=== PATIENT | male | born 1990 | race Caucasian/White ===

== ENCOUNTER 2018-02-05 08:19 | Emergency (ER) | payer OTHER ==
[~2018-02-05] VITALS: Ht 177.8 cm; Wt 65.8 kg
[~2018-02-05 08:19] MED LIST: CLONAZEPAM0.5 M2 PO; CYCLOBENZAPRINE10 MG PO; IBUPROFEN600 MG PO; KLONOPIN2 M1 PO; MEDROL DOSEPAK4 MG PO; Motrin,Rufen800 MG PO; NAPROSYN500 MG PO; NKHM; RISPERDAL PO; SUBOXONE 8 MG-1 EACH SL; VISTARIL PO; VISTARIL25 MG PO; XANAX2 M1 PO; ZITHROMAX Z PA250 MG PO; ZOFRAN4 MG PO; ZUBSOLV 5.7-1.1 EACH SL
[2018-02-05] MEDS ORDERED: SUBOXONE 8 MG-1 EACH SL (08:41)
[2018-02-05 08:48] LABS: BASO % 0.3 % (0.0-1.0); HEMATOCRIT 37.4 % (42.0-52.0); HEMOGLOBIN 12.7 g/dl (14.0-18.0); LYMPH # 1.1 10*3/uL (1.3-4.4); LYMPH % 7.1 % (27.0-41.0); MEAN CELL VOLUME 86.8 fl (80.0-94.0); MEAN CORPUSCULAR HGB 29.5 pg (27.0-31.0); MEAN PLATELET VOLUME 9.6 fl (9.6-12.3); MONO # 0.7 10*3/uL (0.1-1.0); MONO % 4.4 % (3.0-9.0); NEUT % 87.8 % (47.0-73.0); PLATELET COUNT AUTOMATED 252 10*3/uL (130-400); RED BLOOD COUNT 4.31 10*6/uL (4.50-5.90); RED CELL DISTRI WIDTH 12.4 % (0-14.5); WHITE BLOOD COUNT 15.9 10*3/uL (4.8-10.8)
[2018-02-05 08:56] LABS: ACT PARTIAL THROMBO TIME 24.5 SECONDS (20.8-31.5)
[2018-02-05 09:06] LABS: ALBUMIN 4.6 gm/dl (3.1-4.5); ALKALINE PHOSPHATASE 78 U/L (45-117); BUN 10 mg/dl (7-24); CHLORIDE 105 mmol/L (98-107); CREATININE 0.84 mg/dL (0.70-1.30); SGOT/AST 11 IU/L (3-35); SGPT/ALT 18 U/L (12-78); SODIUM 140 mmol/L (136-145)
[2018-02-05 09:14] LABS: ETHYL ALCOHOL < 3.0 mg/dl (<3)
[2018-02-05 09:22] LABS: BILIRUBIN NEGATIVE (NEGATIVE); BLOOD NEGATIVE (NEGATIVE); CLARITY SL CLOUDY (CLEAR); COLOR YELLOW (YELLOW); GLUCOSE NEGATIVE (NEGATIVE); KETONE TRACE (NEGATIVE); LEUKO ESTERASE NEGATIVE (NEGATIVE); NITRITE NEGATIVE (NEGATIVE); SPECIFIC GRAVITY 1.015 (1.005-1.030); UROBILINOGEN 0.2 E.U./dl (0.2-1.0)
[2018-02-05 09:30] LABS: BACTERIA 4+; EPITHELIAL CELLS 0-2; WBC 0-2 wbc/hpf (0-5)
[2018-02-05 09:31] LABS: URINE AMPHETAMINES > 1000 (1000ng/ml); URINE BARBITURATES < 200 (200ng/ml); URINE BENZODIAZEPINES < 200 (200ng/ml); URINE CANNABINOIDS (THC) > 50 (50ng/ml); URINE COCAINE > 300 (300ng/ml); URINE METHADONE < 300 (300ng/ml); URINE OPIATES < 300 (300ng/ml)
[2018-02-05 09:33] LABS: URINE PHENCYCLIDINE < 25 (25ng/ml)
== END 2018-02-05 09:43 | disposition short-term general hospital (02) ==
LOC: ED 08:19
PROVIDERS: Emergency Medicine
DX: S06.9X2A Unspecified intracranial injury with loss of consciousness of 31 minutes to 59 minutes, initial encounter (principal); S02.40DA Maxillary fracture, left side, initial encounter for closed fracture; S02.32XA Fracture of orbital floor, left side, initial encounter for closed fracture; S02.40FA Zygomatic fracture, left side, initial encounter for closed fracture; E11.9 Type 2 diabetes mellitus without complications; F17.200 Nicotine dependence, unspecified, uncomplicated; Z79.899 Other long term (current) drug therapy; Y04.0XXA Assault by unarmed brawl or fight, initial encounter; Y93.89 Activity, other specified; Y92.89 Other specified places as the place of occurrence of the external cause; Y99.8 Other external cause status

== ENCOUNTER 2018-02-14 14:42 | Emergency (ER) | payer OTHER ==
[~2018-02-14] VITALS: Ht 175.2 cm; Wt 63.5 kg
== END 2018-02-14 15:08 | disposition home or self-care (01) ==
LOC: ED 14:42
DX: S01.81XD Laceration without foreign body of other part of head, subsequent encounter (principal); F17.200 Nicotine dependence, unspecified, uncomplicated; Z79.899 Other long term (current) drug therapy; Y04.0XXD Assault by unarmed brawl or fight, subsequent encounter

== ENCOUNTER 2018-08-31 10:54 | Inpatient (IN) | payer OTHER ==
[~2018-08-31] VITALS: Ht 175.3 cm; Wt 53.7 kg
--- NOTE | ~2018-08-31 | EKG ---
[place], [place] ELECTROCARDIOGRAM REPORT NAME: LAUREL SHEPHERD UNIT #: [id number] ROOM: 515 DOCTOR: KATIA DRAFT REPORT BIRTHDATE: [birth year] [facility] Test Date: 2018-08-31 Test Time: 11:09:58 Pat Name: LAUREL SHEPHERD Department: Room: [facility] Gender: M Floor Hand: Namrata Ventura : 1990 Requested By: ZACARIAS SAMANIEGO Order Number: [id number] Reading MD: Martina Valencia MD Measurements Intervals [place] Rate: 74 P: 55 HI: 120 QRS: 90 QRSD: 91 T: 14 QT: 397 QTc: 441 Interpretive Statements Sinus arrhythmia Borderline right axis deviation Borderline T wave abnormalities No previous ECG available for comparison Electronically Signed On 08-31-2018 16:07:24 PST by Martina Valencia MD CM:EKGRPT:ELECTROCARDIOGRAM REPORT [id number] ZACARIAS SAMANIEGO EPIPHANY DRAFT REPORT ZACARIAS SAMANIEGO
[2018-08-31 10:54] VITALS: BP 125/85
[2018-08-31 11:17] LABS: BASO % 0.6 % (0.0-1.0); EOS % 0.5 % (1.0-4.0); HEMATOCRIT 39.7 % (42.0-52.0); HEMOGLOBIN 13.4 g/dl (14.0-18.0); LYMPH % 30.6 % (27.0-41.0); MEAN CELL VOLUME 87.4 fl (80.0-94.0); MEAN CORPUSCULAR HGB 29.5 pg (27.0-31.0); MEAN CORPUSCULAR HGB CONC 33.8 g/dl (33.0-37.0); MEAN PLATELET VOLUME 9.4 fl (9.6-12.3); MONO # 0.8 10*3/uL (0.1-1.0); MONO % 12.5 % (3.0-9.0); NEUT # 3.6 10*3/uL (2.3-7.9); NEUT % 55.6 % (47.0-73.0); PLATELET COUNT AUTOMATED 339 10*3/uL (130-400); RED BLOOD COUNT 4.54 10*6/uL (4.50-5.90); RED CELL DISTRI WIDTH 13.2 % (0-14.5); WHITE BLOOD COUNT 6.5 10*3/uL (4.8-10.8)
[2018-08-31 11:35] LABS: ALBUMIN 4.5 gm/dl (3.1-4.5); ALKALINE PHOSPHATASE 78 U/L (45-117); BUN 14 mg/dl (7-24); CHLORIDE 107 mmol/L (98-107); CREATININE 0.96 mg/dL (0.70-1.30); POTASSIUM 3.7 mmol/L (3.5-5.1); SGOT/AST 19 IU/L (3-35); SGPT/ALT 36 U/L (12-78); SODIUM 142 mmol/L (136-145)
[2018-08-31 11:36] LABS: ACETAMINOPHEN (TYLENOL) < 5.0 ug/ml (10-30); ETHYL ALCOHOL < 3.0 mg/dl (<3)
[2018-08-31 12:08] VITALS: BP 132/72
[2018-08-31 12:08] LABS: BILIRUBIN NEGATIVE (NEGATIVE); BLOOD NEGATIVE (NEGATIVE); CLARITY SL CLOUDY (CLEAR); COLOR YELLOW (YELLOW); GLUCOSE NEGATIVE (NEGATIVE); KETONE 1+ (NEGATIVE); LEUKO ESTERASE NEGATIVE (NEGATIVE); NITRITE NEGATIVE (NEGATIVE); PH 6.5 (5.0-9.0); SPECIFIC GRAVITY 1.025 (1.005-1.030)
[2018-08-31 12:20] LABS: BACTERIA 1+; MUCOUS 1+
[2018-08-31 12:21] LABS: URINE AMPHETAMINES > 1000 (1000ng/ml); URINE BARBITURATES < 200 (200ng/ml); URINE BENZODIAZEPINES > 200 (200ng/ml); URINE CANNABINOIDS (THC) < 50 (50ng/ml); URINE COCAINE > 300 (300ng/ml); URINE METHADONE < 300 (300ng/ml); URINE OPIATES < 300 (300ng/ml)
[2018-08-31 12:25] LABS: URINE PHENCYCLIDINE < 25 (25ng/ml)
[2018-08-31] MEDS ORDERED: SUBOXONE 8 MG-1 EACH SL (12:27)
--- NOTE | 2018-08-31 12:42 | NUR ---
28 year old MALE admitted to room # 515 for stabilization. Reports an addiction to [employer]ENZ[employer] last used 48 hours prior to admission. Compliant with admission procedure. Patient ADMITS TO anxiety, PAIN . See assessment forms for additional information about patient status.
[2018-08-31 16:00] VITALS: BP 129/82
[2018-08-31 20:00] VITALS: BP 131/89
[2018-09-01] VITALS: BP 98/62
--- NOTE | 2018-09-01 04:28 | NUR ---
24 HR chart check completed.
[2018-09-01 08:00] VITALS: BP 99/63
--- NOTE | 2018-09-01 10:47 | NUR ---
MEDICATED WITH MOTRIN FOR PT'S COMPLAINTS OF HEADACHE. WILL MONITOR FOR EFFECTIVENESS.
--- NOTE | 2018-09-01 11:15 | NUR ---
PT REFUSED 10AM DOSE OF LIBRIUM, HE STATES IT MAKES HIM TOO DROWSY, AND REMOVED OWN IV, STATING IT WAS BOTHERING HIM. DR STEVENS INFORMED. STATES THEY TOLD PT IT WAS OK TO REFUSE LIBRIUM IF HE DIDN'T FEEL LIKE HE NEEDED IT, STATES OK TO LEAVE IV OUT.
[2018-09-01 12:00] VITALS: BP 104/76
--- NOTE | 2018-09-01 12:30 | NUR ---
PT RESTING MORE COMFORTABLY, STATES EARLIER MOTRIN EFFECTIVE FOR HEADACHE RELIEF.
[2018-09-01 16:00] VITALS: BP 103/60
--- NOTE | 2018-09-01 17:59 | NUR ---
PT REFUSED 1800 DOSE OF LIBRIUM, HE STATES HE IS JUST NOW WAKING UP.
[2018-09-01 20:00] VITALS: BP 105/64
[2018-09-02] VITALS: BP 106/55
[2018-09-02 08:00] VITALS: BP 92/47
--- NOTE | 2018-09-02 09:10 | NUR ---
PATIENT REQUESTED AND RECIEVED A PRN MOTRIN FOR A HEADACHE THAT HE STATES IS CHRONIC. WILL MONITOR FOR EFFECTIVENESS.
--- NOTE | 2018-09-02 09:11 | NUR ---
PATIENT REFUSED LIBRIUM, STATING HE NO LONGER TAKES THAT.
--- NOTE | 2018-09-02 10:54 | NUR ---
PATIENT WANTS TO FOLLOW UP WITH [facility] FOR HIS AFTERCARE PLAN. [place] STAFF WILL FOLLOW UP WITH PATIENT WITH APPOINTMENT. FAIZA ZHANG B.A. SAT TUTOR
[2018-09-02 12:00] VITALS: BP 112/72
[2018-09-02 16:00] VITALS: BP 122/68
--- NOTE | 2018-09-02 17:54 | NUR ---
PATIENT REQUEST AND RECIEVED ROBAXIN AND MOTRIN. WILL MONITOR FOR EFFECTIVENESS.
[2018-09-02 20:00] VITALS: BP 112/54
[2018-09-03] VITALS: BP 91/41
--- NOTE | 2018-09-03 01:33 | NUR ---
PT RESTING ON RT SIDE, SNORING RESPIRATIONS EASY AND REG ON ROOM AIR. APPEARS SLEEPING; HAS NO COMPLAINTS. WILL CONTINUE TO MONITOR.
[2018-09-03 08:00] VITALS: BP 115/56
[2018-09-03] MEDS ORDERED: THERA TABLET400 MCG PO (11:19)
[2018-09-03] MEDS ORDERED: DICYCLOMINE HCL20 MG PO (11:19)
[2018-09-03] MEDS ORDERED: NATURE'S BLEND100 M2 PO (11:19)
[2018-09-03] MEDS ORDERED: ATARAX,VISTARIL50 MG PO (11:19)
[2018-09-03] MEDS ORDERED: MOTRIN 600 MG E4 TAB PO (11:19)
[2018-09-03] MEDS ORDERED: NATURE'S BLEND F1 MG PO (11:19)
[2018-09-03] MEDS ORDERED: METHOCARBAMOL750 M1 PO (11:19)
--- NOTE | 2018-09-03 13:57 | NUR ---
Discharge instructions reviewed with patient/family. Patient receptive and verbalizes understanding. Follow-up care arranged. Written instructions given to patient/family. DIVINE FARIAS
== END 2018-09-03 14:00 | disposition home or self-care (01) | DRG 897 ==
LOC: ED 10:54 → 5E 11:20 → EDHOLD 11:20 → 5E 12:06
PROVIDERS: Emergency Medicine; Nurse Practitioner Family; ADMIT Internal Medicine
DX: F11.23 Opioid dependence with withdrawal (principal); F13.239 Sedative, hypnotic or anxiolytic dependence with withdrawal, unspecified; D64.9 Anemia, unspecified; F15.10 Other stimulant abuse, uncomplicated; R56.9 Unspecified convulsions; R25.2 Cramp and spasm; R73.9 Hyperglycemia, unspecified; F32.9 Major depressive disorder, single episode, unspecified; F41.9 Anxiety disorder, unspecified; F14.10 Cocaine abuse, uncomplicated; Z83.3 Family history of diabetes mellitus; Z82.49 Family history of ischemic heart disease and other diseases of the circulatory system; Z80.9 Family history of malignant neoplasm, unspecified

== ENCOUNTER 2018-10-25 09:11 | Inpatient (IN) | payer OTHER ==
[~2018-10-25] VITALS: Ht 175.2 cm; Wt 54.5 kg
--- NOTE | ~2018-10-25 | EKG ---
[place], [place] ELECTROCARDIOGRAM REPORT NAME: LAUREL SHEPHERD UNIT #: [id number] ROOM: 529 DOCTOR: KATIA DRAFT REPORT BIRTHDATE: [birth year] [facility] Test Date: 2018-10-25 Test Time: 16:39:23 Pat Name: LAUREL SHEPHERD Department: Room: 529 Gender: M Documentation Nurse: Namrata Ventura : 1990 Requested By: EVELIO STEVENS Order Number: [id number] Reading MD: Roger Carvajal Measurements Intervals [place] Rate: 63 P: 44 IA: 123 QRS: 78 QRSD: 96 T: 20 QT: 412 QTc: 422 Interpretive Statements Sinus rhythm RSR' in V1 or V2, right VCD or RVH Borderline T abnormalities, anterior leads Baseline wander in lead(s) V1 Compared to ECG 10/18/2018 16:45:07 Right ventricular hypertrophy now present T-wave abnormality now present Sinus arrhythmia no longer present Electronically Signed On 10-27-2018 11:02:43 PDT by Roger Carvajal CM:EKGRPT:ELECTROCARDIOGRAM REPORT [id number] EVELIO SÁNCHEZ DRAFT REPORT EVELIO STEVENS DO
[~2018-10-25 09:11] MED LIST changes: +ATARAX,VISTARIL50 MG PO; +DICYCLOMINE HCL20 MG PO; +METHOCARBAMOL750 M1 PO; +MOTRIN 600 MG E4 TAB PO; +NATURE'S BLEND F1 MG PO; +NATURE'S BLEND100 M2 PO; +THERA TABLET400 MCG PO
[2018-10-25 10:21] LABS: BASO # 0.1 10*3/uL (0.0-0.1); BASO % 0.5 % (0.0-1.0); EOS % 0.2 % (1.0-4.0); HEMATOCRIT 43.5 % (42.0-52.0); LYMPH # 1.4 10*3/uL (1.3-4.4); LYMPH % 11.5 % (27.0-41.0); MEAN CELL VOLUME 85.5 fl (80.0-94.0); MEAN CORPUSCULAR HGB 29.5 pg (27.0-31.0); MEAN CORPUSCULAR HGB CONC 34.5 g/dl (33.0-37.0); MEAN PLATELET VOLUME 9.4 fl (9.6-12.3); MONO # 1.4 10*3/uL (0.1-1.0); MONO % 11.6 % (3.0-9.0); NEUT # 9.4 10*3/uL (2.3-7.9); NEUT % 75.7 % (47.0-73.0); PLATELET COUNT AUTOMATED 316 10*3/uL (130-400); RED BLOOD COUNT 5.09 10*6/uL (4.50-5.90); RED CELL DISTRI WIDTH 12.8 % (0-14.5); WHITE BLOOD COUNT 12.4 10*3/uL (4.8-10.8)
[2018-10-25 10:26] VITALS: BP 124/74
[2018-10-25 10:49] LABS: ALBUMIN 4.6 gm/dl (3.1-4.5); ALKALINE PHOSPHATASE 120 U/L (45-117); BUN 13 mg/dl (7-24); CHLORIDE 104 mmol/L (98-107); CREATININE 0.95 mg/dL (0.70-1.30); POTASSIUM 3.6 mmol/L (3.5-5.1); SGOT/AST 24 IU/L (3-35); SGPT/ALT 102 U/L (12-78); SODIUM 140 mmol/L (136-145); TOTAL PROTEIN 8.6 gm/dL (6.4-8.2)
[2018-10-25 10:57] LABS: ETHYL ALCOHOL < 3.0 mg/dl (<3)
[2018-10-25 12:00] VITALS: BP 105/80
[2018-10-25 12:20] LABS: URINE AMPHETAMINES > 1000 (1000ng/ml); URINE BARBITURATES < 200 (200ng/ml); URINE BENZODIAZEPINES > 200 (200ng/ml); URINE CANNABINOIDS (THC) > 50 (50ng/ml); URINE COCAINE < 300 (300ng/ml); URINE METHADONE < 300 (300ng/ml); URINE OPIATES < 300 (300ng/ml); URINE PHENCYCLIDINE < 25 (25ng/ml)
[2018-10-25 12:37] LABS: BILIRUBIN 1+ (NEGATIVE); BLOOD NEGATIVE (NEGATIVE); CLARITY CLOUDY (CLEAR); COLOR YELLOW (YELLOW); GLUCOSE NEGATIVE (NEGATIVE); KETONE TRACE (NEGATIVE); LEUKO ESTERASE NEGATIVE (NEGATIVE); NITRITE NEGATIVE (NEGATIVE)
[2018-10-25 13:10] LABS: BACTERIA 2+; CALCIUM OXALATE CRYSTALS 2+; MUCOUS 2+
[2018-10-25 16:00] VITALS: BP 113/75
[2018-10-26] VITALS: BP 101/52
[2018-10-26 08:00] VITALS: BP 110/68
[2018-10-26 16:00] VITALS: BP 101/74
[2018-10-26 20:00] VITALS: BP 121/63
[2018-10-27 08:00] VITALS: BP 109/71
[2018-10-27 16:00] VITALS: BP 107/61
[2018-10-28] VITALS: BP 105/67
[2018-10-28 08:00] VITALS: BP 110/54
[2018-10-28] MEDS ORDERED: METHOCARBAMOL750 M1 PO (11:59)
[2018-10-28] MEDS ORDERED: ATARAX,VISTARIL50 MG PO (11:59)
== END 2018-10-28 12:10 | disposition home or self-care (01) | DRG 897 ==
LOC: 5E 09:11
PROVIDERS: Internal Medicine; ADMIT Internal Medicine
DX: F11.23 Opioid dependence with withdrawal (principal); Z68.1 Body mass index [BMI] 19.9 or less, adult; R65.10 Systemic inflammatory response syndrome (SIRS) of non-infectious origin without acute organ dysfunction; F32.9 Major depressive disorder, single episode, unspecified; R63.6 Underweight; F15.10 Other stimulant abuse, uncomplicated; F13.10 Sedative, hypnotic or anxiolytic abuse, uncomplicated; F12.90 Cannabis use, unspecified, uncomplicated; R00.0 Tachycardia, unspecified; D72.829 Elevated white blood cell count, unspecified; G25.81 Restless legs syndrome; R82.71 Bacteriuria; F17.210 Nicotine dependence, cigarettes, uncomplicated; F41.1 Generalized anxiety disorder; F19.10 Other psychoactive substance abuse, uncomplicated; D64.9 Anemia, unspecified; R73.03 Prediabetes; R80.9 Proteinuria, unspecified; R82.998 Other abnormal findings in urine; R74.0 Nonspecific elevation of levels of transaminase and lactic acid dehydrogenase [LDH]; R74.8 Abnormal levels of other serum enzymes; Z82.49 Family history of ischemic heart disease and other diseases of the circulatory system; Z83.3 Family history of diabetes mellitus; Z88.8 Allergy status to other drugs, medicaments and biological substances; Z79.899 Other long term (current) drug therapy; E86.1 Hypovolemia

== ENCOUNTER 2019-01-13 23:22 | Inpatient (IN) | payer OTHER ==
[~2019-01-13] VITALS: Ht 172.7 cm; Wt 51.7 kg
--- NOTE | ~2019-01-13 | PR ---
[place], [place] PROGRESS NOTE NAME: LAUREL SHEPHERD [facility] #: [id number] UNIT #: [id number] ROOM: [facility] DOCTOR: NEGIN, PHD KIM BIRTHDATE: [birth year] DOS: 01/15/2019 Followed up with the patient today due to his depression and thoughts of suicide. He states that he continues to feel overwhelmingly depressed and think of killing himself. He states that he would not attempt to harm himself while in the hospital and continues to think about overdosing on purpose to end his life. Discussed contributing factors to his depression, utilized CBT and supportive therapy interventions. The patient appeared to benefit. DIAGNOSES: Polysubstance abuse; major depressive disorder, recurrent, severe. PLAN: The patient is agreeable to inpatient treatment at this time. Jami Barkley is working on finding a bed for the patient in a dual-diagnosis program. Chrsity Palma, PhD CM:PNTRANS [id number] PHD KIM PALMA 01/16/19 0053 interface
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
--- NOTE | ~2019-01-13 | EKG ---
[place], [place] ELECTROCARDIOGRAM REPORT NAME: LAUREL SHEPHERD UNIT #: [id number] ROOM: [facility] DOCTOR: KATIA DRAFT REPORT BIRTHDATE: [birth year] [facility] Test Date: 2019-01-14 Test Time: 00:57:13 Pat Name: LAUREL SHEPHERD Department: ED Room: [facility] Gender: M Case Investigator: Dami Durand : 1990 Requested By: ILENE KULKARNI Order Number: [id number] Reading MD: Martina Valencia MD Measurements Intervals [place] Rate: 76 P: 32 NE: 133 QRS: 81 QRSD: 97 T: -11 QT: 357 QTc: 402 Interpretive Statements Sinus rhythm Borderline T abnormalities, inferior leads Compared to ECG 10/25/2018 16:39:23 Right ventricular hypertrophy no longer present T-wave abnormality still present Electronically Signed On 01-14-2019 6:52:52 PDT by Martina Valencia MD CM:EKGRPT:ELECTROCARDIOGRAM REPORT [id number] ILENE SÁNCHEZ DRAFT REPORT ILENE KULKARNI DO
[2019-01-13] MEDS ORDERED: SUBOXONE 8 MG-1 EACH SL (23:35)
[2019-01-13 23:40] VITALS: BP 118/72
[2019-01-13 23:52] LABS: BASO % 0.6 % (0.0-1.0); EOS # 0.1 10*3/uL (0.0-0.4); EOS % 1.7 % (1.0-4.0); HEMATOCRIT 37.7 % (42.0-52.0); LYMPH # 2.7 10*3/uL (1.3-4.4); LYMPH % 40.7 % (27.0-41.0); MEAN CELL VOLUME 87.7 fl (80.0-94.0); MEAN CORPUSCULAR HGB 30.2 pg (27.0-31.0); MEAN CORPUSCULAR HGB CONC 34.5 g/dl (33.0-37.0); MEAN PLATELET VOLUME 9.1 fl (9.6-12.3); MONO # 0.9 10*3/uL (0.1-1.0); MONO % 13.6 % (3.0-9.0); NEUT # 2.9 10*3/uL (2.3-7.9); NEUT % 43.2 % (47.0-73.0); PLATELET COUNT AUTOMATED 264 10*3/uL (130-400); RED CELL DISTRI WIDTH 12.9 % (0-14.5); WHITE BLOOD COUNT 6.6 10*3/uL (4.8-10.8)
[2019-01-14 00:07] LABS: ALBUMIN 4.4 gm/dl (3.1-4.5); ALKALINE PHOSPHATASE 93 U/L (45-117); BUN 23 mg/dl (7-24); CHLORIDE 104 mmol/L (98-107); CREATININE 1.09 mg/dL (0.70-1.30); POTASSIUM 2.9 mmol/L (3.5-5.1); SGOT/AST 35 IU/L (3-35); SGPT/ALT 59 U/L (12-78); SODIUM 140 mmol/L (136-145); TOTAL PROTEIN 7.7 gm/dL (6.4-8.2)
[2019-01-14 00:08] LABS: ACETAMINOPHEN (TYLENOL) < 5.0 ug/ml (10-30); ETHYL ALCOHOL < 3.0 mg/dl (<3)
[2019-01-14 00:31] LABS: BILIRUBIN 1+ (NEGATIVE); BLOOD 3+ (NEGATIVE); CLARITY CLOUDY (CLEAR); COLOR YELLOW (YELLOW); GLUCOSE NEGATIVE (NEGATIVE); KETONE TRACE (NEGATIVE); LEUKO ESTERASE NEGATIVE (NEGATIVE); NITRITE NEGATIVE (NEGATIVE); SPECIFIC GRAVITY >= 1.030 (1.005-1.030)
--- NOTE | 2019-01-14 00:33 | NUR ---
PATIENT RESTING IN BED AT THIS TIME WITH LIGHTS TURNED DOWN AND EYES CLOSED. RESPIRATIONS EASY, NON-LABORED ON ROOM AIR. CALL LIGHT WITHIN REACH. NO DISTRESS NOTED. VISIBLE FROM NURSES STATION. RN WILL CONTINUE TO MONITOR.
[2019-01-14 00:40] LABS: URINE AMPHETAMINES > 1000 (1000ng/ml); URINE BARBITURATES < 200 (200ng/ml); URINE BENZODIAZEPINES > 200 (200ng/ml); URINE CANNABINOIDS (THC) > 50 (50ng/ml); URINE COCAINE > 300 (300ng/ml); URINE METHADONE < 300 (300ng/ml); URINE OPIATES > 300 (300ng/ml)
[2019-01-14 00:45] LABS: URINE PHENCYCLIDINE < 25 (25ng/ml)
[2019-01-14 00:49] LABS: BACTERIA 2+; RBC 21-30 rbc/hpf (0-2)
--- NOTE | 2019-01-14 01:53 | NUR ---
PATIENT RESTING QUIETLY IN BED AT THIS TIME. RESPIRATIONS EASY, NON-LABORED ON ROOM AIR. CALL LIGHT WITHIN REACH. NO DISTRESS NOTED. RN WILL CONTINUE TO MONITOR.
[2019-01-14 03:00] VITALS: BP 117/62; BP 128/50
--- NOTE | 2019-01-14 03:00 | NUR ---
A 28, admitted to [facility], under the services of SALOME Espino DO with a diagnosis of METHAMPHETAMINE INDUCED PSYCHOTIC DISORDER. Chief complaint is SUCIDAL IDEATION. Patient arrived via stretcher from ER. Monitor applied. Initial assessment completed. Vital signs taken and recorded. SALOME ESPINO DO notified of admission to the unit. Orders received. See assessment for past medical history, medications and allergies. Patient and/or family oriented to unit. [facility] visitation policy reviewed. Clothing/patient valuable form completed. SEBASTIÁN DE ANDA
[2019-01-14] MEDS ORDERED: MOTRIN IB200 M2 PO (03:08)
--- NOTE | 2019-01-14 03:35 | NUR ---
CONSULT CALLED TO [facility].
[2019-01-14 04:00] VITALS: BP 90/46
[2019-01-14 05:54] LABS: ALBUMIN 3.9 gm/dl (3.1-4.5); ALKALINE PHOSPHATASE 86 U/L (45-117); BUN 22 mg/dl (7-24); CHLORIDE 104 mmol/L (98-107); CHOLESTEROL 137 mg/dL (<200); HDL CHOLESTEROL 68 mg/dl (40-60); LDL CHOLESTEROL 56 mg/dL (9-159); PHOSPHOROUS 4.8 mg/dL (2.5-4.9); POTASSIUM 3.3 mmol/L (3.5-5.1); SGOT/AST 33 IU/L (3-35); SGPT/ALT 54 U/L (12-78); SODIUM 141 mmol/L (136-145); TRIGLYCERIDES 66 mg/dl (<150); VLDL CHOLESTEROL 13 mg/dL (6-40)
[2019-01-14 06:00] LABS: CREATININE 1.01 mg/dL (0.70-1.30); FREE T4 1.35 ng/dl (0.76-1.46)
[2019-01-14 06:12] LABS: BASO % 0.5 % (0.0-1.0); EOS # 0.2 10*3/uL (0.0-0.4); EOS % 3.6 % (1.0-4.0); HEMATOCRIT 36.3 % (42.0-52.0); HEMOGLOBIN 11.9 g/dl (14.0-18.0); LYMPH # 2.3 10*3/uL (1.3-4.4); LYMPH % 41.4 % (27.0-41.0); MEAN CELL VOLUME 88.8 fl (80.0-94.0); MEAN CORPUSCULAR HGB 29.1 pg (27.0-31.0); MEAN CORPUSCULAR HGB CONC 32.8 g/dl (33.0-37.0); MEAN PLATELET VOLUME 9.7 fl (9.6-12.3); MONO % 17.7 % (3.0-9.0); NEUT % 36.6 % (47.0-73.0); PLATELET COUNT AUTOMATED 243 10*3/uL (130-400); RED BLOOD COUNT 4.09 10*6/uL (4.50-5.90); RED CELL DISTRI WIDTH 12.8 % (0-14.5); WHITE BLOOD COUNT 5.6 10*3/uL (4.8-10.8)
[2019-01-14 06:32] LABS: VITAMIN D, 25-HYDROXY 21.5 ng/mL (30-100)
[2019-01-14 06:53] LABS: ACT PARTIAL THROMBO TIME 31.1 SECONDS (20.0-32.1)
[2019-01-14 08:00] VITALS: BP 96/64
--- NOTE | 2019-01-14 08:00 | NUR ---
PATIENT DENIES BEING SUICIDAL OR HAVING SUICIDAL THOUGHTS. HE STATES THAT HIS GRANDMOTHER MADE UP THESE TEXT MESSAGES TO GET HIM OUT OF HER HOUSE. PATIENT IS CALM AND COOPERATIVE. NO C/O VOICED. WILL CONTINUE TO MONITOR.
--- NOTE | 2019-01-14 08:24 | NUR ---
MYA CORTEZ NOTIFIED OF NEW CONSULT ORDER.
--- NOTE | 2019-01-14 08:43 | NUR ---
psychiatric assessment: met with client, he is a&ox4, he was asleep, but awakened very easily and he was willing to talk to me, he reports that he relapsed on meth sunday and he has been going to [facility] for 4 years in their suboxone program, he said that he has been clean for the most part, has a hx of heroin, no needles,in the past, but did inject the meth on sunday and then snorted heroin. he reports that he does not feel safe at this time and feels he just needs a little bit to get himself together. he said that he has been having suicidal thoughts and yesterday he sent some text messages saying that he was going to kill himself, he said that he had a plan to go [facility] to [facility] on heroin, he said that he has not made any previous attempts and he does not get mental health treatment, just the iop at [facility], client reports that he now does not know what he is going to do, he said that he is willing to go somewhere to get help. he reports that he is just tired and he didnt feel like living, he was brought to the er pink slipped by the mary. discussed with the doctor and nurse, my clinical recommendation is to seek a dual unit for this client. he has no support in the community at this time and is fragile, he does have a job [employer] which is a positive for him once he is dc. he should continue to follow at [facility] as well after dc.
[2019-01-14 12:00] VITALS: BP 110/59
--- NOTE | 2019-01-14 12:00 | NUR ---
NOTIFIED MYA CORTEZ THAT STATED THAT PATIENT IS MEDICALLY CLEAR.
--- NOTE | 2019-01-14 14:15 | NUR ---
CALLED REGARDING PATIENT WANTING TO LEAVE AMA.
--- NOTE | 2019-01-14 15:45 | NUR ---
PATIENT STATED TO ANOTHER RN "WELL IF YOUR PASSING OUT MEDS YOU CAN GIVE ME SOME TOO."
[2019-01-14 16:00] VITALS: BP 104/59
--- NOTE | 2019-01-14 16:00 | NUR ---
CALLED REGARDING PATIENT STATES THAT HE IS GOING TO NEED SOMETHING FOR WITHDRAWING. WHEN RN QUESTIONED PATIENT STATED "I JUST NEED ROBAXIN OR BENADRYL TO HELP ME SLEEP." RN INFORMED OF THIS. STATED SHE WILL BE UP TO TALK TO THE PATIENT.
--- NOTE | 2019-01-14 16:42 | NUR ---
PATIENT YELLING AT PATIENT NEXT TO HIM. "DO YOU ALWAYS HAVE TO TAKE A SHIT WHILE IM TRYING TO EAT." STAFF INSTRUCTED PATIENT ON HOW INAPPROPRIATE THAT COMMENT WAS. PATIENT STATED " WELL IF I ACT LIKE THIS THEN ILL GET MEDICINE TOO. LIKE EVERYONE ELSE." MEDICATED WITH [facility] PER PRN ORDER.
[2019-01-14 20:00] VITALS: BP 101/63
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
--- NOTE | 2019-01-14 21:21 | NUR ---
[facility] GIVEN TO HELP PATIENT REST. WILL MONITOR AND REASSESS.
[2019-01-15] VITALS: BP 86/50
[2019-01-15 04:00] VITALS: BP 96/62
[2019-01-15 04:58] LABS: BASO % 0.8 % (0.0-1.0); EOS # 0.2 10*3/uL (0.0-0.4); EOS % 3.8 % (1.0-4.0); HEMATOCRIT 36.8 % (42.0-52.0); LYMPH # 2.3 10*3/uL (1.3-4.4); LYMPH % 43.8 % (27.0-41.0); MEAN CORPUSCULAR HGB 29.3 pg (27.0-31.0); MEAN CORPUSCULAR HGB CONC 32.6 g/dl (33.0-37.0); MEAN PLATELET VOLUME 9.5 fl (9.6-12.3); MONO # 0.7 10*3/uL (0.1-1.0); MONO % 13.4 % (3.0-9.0); PLATELET COUNT AUTOMATED 241 10*3/uL (130-400); RED BLOOD COUNT 4.09 10*6/uL (4.50-5.90); WHITE BLOOD COUNT 5.3 10*3/uL (4.8-10.8)
[2019-01-15 05:25] LABS: BUN 15 mg/dl (7-24); CHLORIDE 110 mmol/L (98-107); CREATININE 0.64 mg/dL (0.70-1.30); POTASSIUM 3.8 mmol/L (3.5-5.1); SODIUM 143 mmol/L (136-145)
[2019-01-15 08:00] VITALS: BP 100/54
--- NOTE | 2019-01-15 08:14 | NUR ---
PT STATES THAT HE THINKS OF SUICIDE, BUT IS NOT SUICIDAL, HAS NO PLAN OR THOUGHTS OF HARMING SELF AT THIS TIME.
--- NOTE | 2019-01-15 09:38 | NUR ---
spoke with nursing and i will search for an inpatient dual unit for client.
[2019-01-15 12:00] VITALS: BP 94/50
--- NOTE | 2019-01-15 14:25 | NUR ---
NURSE TO NURSE REPORT GIVEN TO ZULLY AT [facility].
--- NOTE | 2019-01-15 15:08 | NUR ---
Transported to [facility] via [facility], all belongings sent with pt. including 2 lighters and 1 pk. clifford.
== END 2019-01-15 15:08 | disposition home health service (06) | DRG 897 ==
LOC: ED 23:22 → ICCU 01-14 02:15 → EDHOLD 01-14 02:15 → ICCU 01-14 02:47
PROVIDERS: Family Medicine; Internal Medicine; Student in an Organized Health Care Education/Training Program; ADMIT Internal Medicine
DX: F15.159 Other stimulant abuse with stimulant-induced psychotic disorder, unspecified (principal); R45.851 Suicidal ideations; F33.2 Major depressive disorder, recurrent severe without psychotic features; F11.10 Opioid abuse, uncomplicated; F17.210 Nicotine dependence, cigarettes, uncomplicated; E87.6 Hypokalemia; F13.10 Sedative, hypnotic or anxiolytic abuse, uncomplicated; F14.10 Cocaine abuse, uncomplicated; F41.1 Generalized anxiety disorder; M95.4 Acquired deformity of chest and rib; G25.81 Restless legs syndrome; Z83.3 Family history of diabetes mellitus; Z82.49 Family history of ischemic heart disease and other diseases of the circulatory system; Z88.8 Allergy status to other drugs, medicaments and biological substances

== ENCOUNTER 2019-03-05 04:51 | Emergency (ER) | payer OTHER ==
[~2019-03-05] VITALS: Ht 175.2 cm; Wt 61.2 kg
[~2019-03-05 04:51] MED LIST changes: +MOTRIN IB200 M2 PO
== END 2019-03-05 05:37 | disposition home or self-care (01) ==
LOC: ED 04:51
DX: R23.4 Changes in skin texture (principal); J02.9 Acute pharyngitis, unspecified; R68.83 Chills (without fever); F15.10 Other stimulant abuse, uncomplicated; F13.10 Sedative, hypnotic or anxiolytic abuse, uncomplicated; F14.10 Cocaine abuse, uncomplicated; F11.10 Opioid abuse, uncomplicated; F12.90 Cannabis use, unspecified, uncomplicated; F19.10 Other psychoactive substance abuse, uncomplicated; F17.210 Nicotine dependence, cigarettes, uncomplicated; Z88.8 Allergy status to other drugs, medicaments and biological substances; Z79.899 Other long term (current) drug therapy

== ENCOUNTER 2019-11-14 18:12 | Emergency (ER) | payer OTHER ==
[~2019-11-14] VITALS: Ht 177.8 cm; Wt 61.2 kg
[2019-11-14] MEDS ORDERED: DOXYCYCLINE100 M3 PO (18:42)
== END 2019-11-14 18:55 | disposition home or self-care (01) ==
LOC: ED 18:12
DX: S61.512A Laceration without foreign body of left wrist, initial encounter (principal); Z88.8 Allergy status to other drugs, medicaments and biological substances; Z79.899 Other long term (current) drug therapy; Z87.891 Personal history of nicotine dependence; W25.XXXA Contact with sharp glass, initial encounter; Y93.89 Activity, other specified; Y92.89 Other specified places as the place of occurrence of the external cause; Y99.8 Other external cause status

== ENCOUNTER 2020-04-13 21:39 | Emergency (ER) | payer OTHER ==
[~2020-04-13] VITALS: Ht 175.2 cm; Wt 59.0 kg
[~2020-04-13 21:39] MED LIST changes: +DOXYCYCLINE100 M3 PO
[2020-04-13 22:41] LABS: CLARITY CLOUDY (CLEAR); COLOR RED (YELLOW)
[2020-04-13 22:42] LABS: BILIRUBIN NEGATIVE; BLOOD 3+ (NEGATIVE); GLUCOSE NEGATIVE; KETONE NEGATIVE; LEUKO ESTERASE TRACE (NEGATIVE); NITRITE NEGATIVE (NEGATIVE); PH 6.5 (4.5-8.0); UROBILINOGEN 0.2 E.U./dl (0.0-1.0)
[2020-04-13 22:43] LABS: RBC TNTC rbc/hpf (0-2)
[2020-04-13 22:57] LABS: BASO % 0.6 % (0.0-1.0); EOS # 0.1 10*3/uL (0.0-0.4); EOS % 1.5 % (1.0-4.0); HEMATOCRIT 36.6 % (42.0-52.0); LYMPH # 3.3 10*3/uL (1.3-4.4); LYMPH % 49.8 % (27.0-41.0); MEAN CELL VOLUME 85.9 fl (80.0-94.0); MEAN CORPUSCULAR HGB 28.9 pg (27.0-31.0); MEAN CORPUSCULAR HGB CONC 33.6 g/dl (33.0-37.0); MEAN PLATELET VOLUME 9.4 fl (9.6-12.3); MONO # 0.8 10*3/uL (0.1-1.0); MONO % 11.3 % (3.0-9.0); NEUT # 2.5 10*3/uL (2.3-7.9); NEUT % 36.7 % (47.0-73.0); PLATELET COUNT AUTOMATED 243 10*3/uL (130-400); RED BLOOD COUNT 4.26 10*6/uL (4.50-5.90); RED CELL DISTRI WIDTH 12.6 % (0-14.5); WHITE BLOOD COUNT 6.7 10*3/uL (4.8-10.8)
[2020-04-13 23:13] LABS: ALBUMIN 4.3 gm/dl (3.1-4.5); ALKALINE PHOSPHATASE 101 U/L (45-117); BUN 20 mg/dl (7-24); CHLORIDE 106 mmol/L (98-107); POTASSIUM 3.8 mmol/L (3.5-5.1); SGOT/AST 107 IU/L (3-35); SGPT/ALT 388 U/L (12-78); SODIUM 140 mmol/L (136-145); TOTAL PROTEIN 7.6 gm/dL (6.4-8.2)
[2020-04-14] MEDS ORDERED: SEPTDS PO (00:21)
== END 2020-04-14 00:49 | disposition home or self-care (01) ==
LOC: ED 21:39
PROVIDERS: Nurse Practitioner Family
DX: N39.0 Urinary tract infection, site not specified (principal); R31.9 Hematuria, unspecified; N20.0 Calculus of kidney; F41.9 Anxiety disorder, unspecified; Z88.8 Allergy status to other drugs, medicaments and biological substances; Z79.899 Other long term (current) drug therapy

== ENCOUNTER → 2020-04-23 | Outpatient (CLI) | payer OTHER ==
[~2020-04-23] MED LIST changes: +SEPTDS PO
[2020-04-23 15:29] LABS: BILIRUBIN NEGATIVE; BLOOD 3+ (NEGATIVE); CLARITY CLEAR (CLEAR); COLOR YELLOW (YELLOW); GLUCOSE NEGATIVE; KETONE NEGATIVE; SPECIFIC GRAVITY > 1.030 (1.001-1.030)
[2020-04-23 15:30] LABS: LEUKO ESTERASE NEGATIVE (NEGATIVE); NITRITE NEGATIVE (NEGATIVE); PH 5.5 (4.5-8.0)
[2020-04-23 16:54] LABS: RBC TNTC rbc/hpf (0-2)
[2020-04-23 16:55] LABS: BACTERIA 1+
== END | disposition home or self-care (01) ==
LOC: LAB 12:23
PROVIDERS: ATTEND Urology
DX: R35.0 Frequency of micturition (principal); N20.0 Calculus of kidney; R53.83 Other fatigue

== ENCOUNTER → 2020-04-30 | Outpatient (CLI) | payer OTHER | END | disposition home or self-care (01) | LOC: US 13:30 | PROVIDERS: ATTEND Nurse Practitioner Family | DX: R79.89 Other specified abnormal findings of blood chemistry (principal) ==

== ENCOUNTER 2020-07-08 10:41 | Emergency (ER) | payer OTHER ==
[~2020-07-08] VITALS: Ht 175.2 cm; Wt 56.7 kg
[2020-07-08 11:33] LABS: BASO % 0.3 % (0.0-1.0); EOS % 0.1 % (1.0-4.0); HEMATOCRIT 38.1 % (42.0-52.0); LYMPH # 1.7 10*3/uL (1.3-4.4); LYMPH % 15.6 % (27.0-41.0); MEAN CORPUSCULAR HGB 29.4 pg (27.0-31.0); MEAN CORPUSCULAR HGB CONC 33.1 g/dl (33.0-37.0); MEAN PLATELET VOLUME 9.2 fl (9.6-12.3); MONO # 1.1 10*3/uL (0.1-1.0); MONO % 9.8 % (3.0-9.0); NEUT # 8.1 10*3/uL (2.3-7.9); NEUT % 73.9 % (47.0-73.0); PLATELET COUNT AUTOMATED 272 10*3/uL (130-400); RED BLOOD COUNT 4.28 10*6/uL (4.50-5.90); RED CELL DISTRI WIDTH 12.2 % (0-14.5)
[2020-07-08 11:48] LABS: ALBUMIN 4.2 gm/dl (3.1-4.5); ALKALINE PHOSPHATASE 92 U/L (45-117); BUN 22 mg/dl (7-24); CHLORIDE 106 mmol/L (98-107); POTASSIUM 4.2 mmol/L (3.5-5.1); SGOT/AST 245 IU/L (3-35); SGPT/ALT 435 U/L (12-78); SODIUM 139 mmol/L (136-145); TOTAL PROTEIN 7.6 gm/dL (6.4-8.2)
[2020-07-08 11:54] LABS: ACT PARTIAL THROMBO TIME 30.3 SECONDS (20.0-32.1); INTERNATIONAL NORM RATIO 1.1 (2.0-3.5)
== END 2020-07-08 13:18 | disposition home or self-care (01) ==
LOC: ED 10:41
PROVIDERS: Physician Assistant
DX: K08.89 Other specified disorders of teeth and supporting structures (principal); Z88.8 Allergy status to other drugs, medicaments and biological substances; Z79.899 Other long term (current) drug therapy

== ENCOUNTER → 2020-08-31 | Outpatient (CLI) | payer OTHER ==
[2020-08-31 14:27] LABS: BASO % 0.5 % (0.0-1.0); EOS # 0.1 10*3/uL (0.0-0.4); EOS % 1.1 % (1.0-4.0); HEMATOCRIT 36.4 % (42.0-52.0); LYMPH # 2.6 10*3/uL (1.3-4.4); LYMPH % 47.9 % (27.0-41.0); MEAN CELL VOLUME 88.3 fl (80.0-94.0); MEAN CORPUSCULAR HGB 29.1 pg (27.0-31.0); MEAN PLATELET VOLUME 9.6 fl (9.6-12.3); MONO # 0.6 10*3/uL (0.1-1.0); MONO % 10.7 % (3.0-9.0); NEUT # 2.2 10*3/uL (2.3-7.9); NEUT % 39.6 % (47.0-73.0); PLATELET COUNT AUTOMATED 221 10*3/uL (130-400); RED BLOOD COUNT 4.12 10*6/uL (4.50-5.90); RED CELL DISTRI WIDTH 12.1 % (0-14.5); WHITE BLOOD COUNT 5.5 10*3/uL (4.8-10.8)
[2020-08-31 15:05] LABS: ALBUMIN 4.1 gm/dl (3.1-4.5); ALKALINE PHOSPHATASE 99 U/L (45-117); BILIRUBIN, DIRECT 0.1 mg/dL (0.0-0.2); BUN 10 mg/dl (7-24); CHLORIDE 105 mmol/L (98-107); CREATININE 0.85 mg/dL (0.70-1.30); POTASSIUM 4.1 mmol/L (3.5-5.1); SGOT/AST 180 IU/L (3-35); SGPT/ALT 398 U/L (12-78); SODIUM 139 mmol/L (136-145); TOTAL PROTEIN 7.4 gm/dL (6.4-8.2)
[2020-09-01 06:10] LABS: HEP B CORE AB, IGM Negative (Negative); HEPATITIS B SURFACE AG Negative (Negative)
[2020-09-01 11:18] LABS: HEPATITIS C VIRUS ANTIBODY >11.0 s/co (0.0-0.9)
[2020-09-04 00:06] LABS: TB1 Ag VALUE 0.04 IU/mL (.)
== END | disposition home or self-care (01) ==
LOC: LAB 14:00
PROVIDERS: ATTEND Anesthesiology Addiction Medicine
DX: F11.11 Opioid abuse, in remission (principal); F14.11 Cocaine abuse, in remission

== ENCOUNTER 2021-03-29 06:26 | Inpatient (IN) | payer OTHER ==
[~2021-03-29] VITALS: Ht 175.2 cm; Wt 51.7 kg
[2021-03-29] VITALS (10 sets, daily range): BP systolic 116–135; BP diastolic 65–83
[2021-03-29] MEDS ORDERED: SUBOXONE 8 MG-1 EACH SL (07:47)
[2021-03-29 08:58] LABS: BASO # 0.1 10*3/uL (0.0-0.1); BASO % 0.3 % (0.0-1.0); EOS # 0.1 10*3/uL (0.0-0.4); EOS % 0.3 % (1.0-4.0); HEMATOCRIT 36.2 % (42.0-52.0); LYMPH # 2.1 10*3/uL (1.3-4.4); LYMPH % 12.6 % (27.0-41.0); MEAN CELL VOLUME 87.7 fl (80.0-94.0); MEAN CORPUSCULAR HGB 29.5 pg (27.0-31.0); MEAN CORPUSCULAR HGB CONC 33.7 g/dl (33.0-37.0); MEAN PLATELET VOLUME 9.7 fl (9.6-12.3); MONO # 1.4 10*3/uL (0.1-1.0); MONO % 8.4 % (3.0-9.0); NEUT # 12.8 10*3/uL (2.3-7.9); NEUT % 78.1 % (47.0-73.0); PLATELET COUNT AUTOMATED 231 10*3/uL (130-400); RED BLOOD COUNT 4.13 10*6/uL (4.50-5.90); RED CELL DISTRI WIDTH 12.3 % (0-14.5); WHITE BLOOD COUNT 16.5 10*3/uL (4.8-10.8)
[2021-03-29 09:11] LABS: ALKALINE PHOSPHATASE 62 U/L (45-117); BUN 14 mg/dl (7-24); CHLORIDE 109 mmol/L (98-107); CREATININE 0.73 mg/dL (0.70-1.30); POTASSIUM 3.9 mmol/L (3.5-5.1); SGOT/AST 25 IU/L (3-35); SGPT/ALT 25 U/L (12-78); SODIUM 141 mmol/L (136-145); TOTAL PROTEIN 6.8 gm/dL (6.4-8.2)
[2021-03-30] VITALS: BP 118/59
[2021-03-30 06:12] LABS: BASO % 0.1 % (0.0-1.0); HEMATOCRIT 28.6 % (42.0-52.0); LYMPH # 0.8 10*3/uL (1.3-4.4); MEAN CELL VOLUME 87.5 fl (80.0-94.0); MEAN CORPUSCULAR HGB 29.7 pg (27.0-31.0); MEAN CORPUSCULAR HGB CONC 33.9 g/dl (33.0-37.0); MONO # 0.9 10*3/uL (0.1-1.0); MONO % 7.4 % (3.0-9.0); NEUT # 10.2 10*3/uL (2.3-7.9); NEUT % 85.2 % (47.0-73.0); PLATELET COUNT AUTOMATED 191 10*3/uL (130-400); RED BLOOD COUNT 3.27 10*6/uL (4.50-5.90); RED CELL DISTRI WIDTH 12.3 % (0-14.5); WHITE BLOOD COUNT 11.9 10*3/uL (4.8-10.8)
[2021-03-30 06:17] LABS: ALBUMIN 3.2 gm/dl (3.1-4.5); ALKALINE PHOSPHATASE 49 U/L (45-117); BUN 16 mg/dl (7-24); CHLORIDE 108 mmol/L (98-107); CHOLESTEROL 135 mg/dL (<200); CREATININE 0.84 mg/dL (0.70-1.30); LDL CHOLESTEROL 65 mg/dL (9-159); POTASSIUM 4.5 mmol/L (3.5-5.1); SGOT/AST 24 IU/L (3-35); SGPT/ALT 19 U/L (12-78); SODIUM 139 mmol/L (136-145); TOTAL PROTEIN 6.1 gm/dL (6.4-8.2); TRIGLYCERIDES 28 mg/dl (<150)
[2021-03-30 07:47] LABS: VITAMIN D, 25-HYDROXY 35.6 ng/mL (30-100)
[2021-03-30 08:00] VITALS: BP 112/55
[2021-03-30 12:00] VITALS: BP 120/74
[2021-03-30 16:00] VITALS: BP 111/63
[2021-03-30 20:00] VITALS: BP 114/60
[2021-03-31] VITALS (7 sets, daily range): BP systolic 103–123; BP diastolic 56–71
[2021-03-31 06:26] LABS: BASO % 0.1 % (0.0-1.0); HEMATOCRIT 26.1 % (42.0-52.0); LYMPH # 2.6 10*3/uL (1.3-4.4); LYMPH % 21.8 % (27.0-41.0); MEAN CELL VOLUME 89.7 fl (80.0-94.0); MEAN CORPUSCULAR HGB 29.6 pg (27.0-31.0); MEAN PLATELET VOLUME 10.4 fl (9.6-12.3); MONO # 1.4 10*3/uL (0.1-1.0); MONO % 11.4 % (3.0-9.0); NEUT # 7.9 10*3/uL (2.3-7.9); NEUT % 66.3 % (47.0-73.0); PLATELET COUNT AUTOMATED 161 10*3/uL (130-400); RED BLOOD COUNT 2.91 10*6/uL (4.50-5.90); RED CELL DISTRI WIDTH 12.4 % (0-14.5); WHITE BLOOD COUNT 11.9 10*3/uL (4.8-10.8)
[2021-04-01] VITALS: BP 117/65
[2021-04-01 06:08] LABS: HEMATOCRIT 26.6 % (42.0-52.0); LYMPH # 1.2 10*3/uL (1.3-4.4); LYMPH % 11.1 % (27.0-41.0); MEAN CELL VOLUME 87.8 fl (80.0-94.0); MEAN CORPUSCULAR HGB 29.4 pg (27.0-31.0); MEAN CORPUSCULAR HGB CONC 33.5 g/dl (33.0-37.0); MONO # 1.1 10*3/uL (0.1-1.0); MONO % 10.6 % (3.0-9.0); NEUT # 8.2 10*3/uL (2.3-7.9); NEUT % 77.6 % (47.0-73.0); PLATELET COUNT AUTOMATED 183 10*3/uL (130-400); RED BLOOD COUNT 3.03 10*6/uL (4.50-5.90); WHITE BLOOD COUNT 10.5 10*3/uL (4.8-10.8)
[2021-04-01 08:00] VITALS: BP 109/71
[2021-04-01] MEDS ORDERED: VITAMIN D350 MC2 PO (11:04)
[2021-04-01] MEDS ORDERED: ZOFRAN4 MG PO (11:04)
[2021-04-01] MEDS ORDERED: ASPIRIN ADULT L81 M2 PO (11:04)
[2021-04-01] MEDS ORDERED: HYDROCODONE-AC1 EAC1 PO (11:04)
[2021-04-01] MEDS ORDERED: COLACE100 MG PO (15:18)
== END 2021-04-01 11:45 | disposition home health service (06) | DRG 308 ==
LOC: ED 06:26 → EDHOLD 06:57 → 5E 06:57
PROVIDERS: Orthopaedic Surgery; Registered Nurse; ADMIT Student in an Organized Health Care Education/Training Program; ATTEND Student in an Organized Health Care Education/Training Program
PROC: 0QS636Z Reposition Right Upper Femur with Intramedullary Internal Fixation Device, Percutaneous Approach (ICD-10-PCS; principal; 2021-03-29)
PROC: 3E0T3BZ Introduction of Anesthetic Agent into Peripheral Nerves and Plexi, Percutaneous Approach (ICD-10-PCS; 2021-03-29)
DX: S72.21XA Displaced subtrochanteric fracture of right femur, initial encounter for closed fracture (principal); R63.6 Underweight; F17.213 Nicotine dependence, cigarettes, with withdrawal; D64.9 Anemia, unspecified; W06.XXXA Fall from bed, initial encounter; Y93.89 Activity, other specified; Y92.89 Other specified places as the place of occurrence of the external cause; Y99.8 Other external cause status; Z71.6 Tobacco abuse counseling; Z88.8 Allergy status to other drugs, medicaments and biological substances; Z79.899 Other long term (current) drug therapy; Z82.49 Family history of ischemic heart disease and other diseases of the circulatory system; Z83.3 Family history of diabetes mellitus

== ENCOUNTER → 2021-04-13 | Outpatient (CLI) | payer OTHER ==
[~2021-04-13] MED LIST changes: +ASPIRIN ADULT L81 M2 PO; +COLACE100 MG PO; +HYDROCODONE-AC1 EAC1 PO; +VITAMIN D350 MC2 PO
== END | disposition home or self-care (01) ==
LOC: ORTHO 01:00
PROVIDERS: ATTEND Orthopaedic Surgery
DX: S72.21XD Displaced subtrochanteric fracture of right femur, subsequent encounter for closed fracture with routine healing (principal); X58.XXXD Exposure to other specified factors, subsequent encounter

== ENCOUNTER → 2021-04-18 | Outpatient (CLI) | payer OTHER | END | disposition home or self-care (01) | LOC: RAD 14:00 | PROVIDERS: ATTEND Nurse Practitioner Family | DX: S72.051S Unspecified fracture of head of right femur, sequela (principal); Z72.0 Tobacco use; R63.4 Abnormal weight loss; R93.6 Abnormal findings on diagnostic imaging of limbs ==

== ENCOUNTER → 2021-05-11 | Outpatient (CLI) | payer OTHER | END | disposition home or self-care (01) | LOC: ORTHO 01:03 | PROVIDERS: ATTEND Orthopaedic Surgery | DX: S72.21XD Displaced subtrochanteric fracture of right femur, subsequent encounter for closed fracture with routine healing (principal); X58.XXXD Exposure to other specified factors, subsequent encounter ==

== ENCOUNTER → 2021-07-11 | Outpatient (CLI) | payer OTHER | END | disposition home or self-care (01) | LOC: ORTHO 04:50 | PROVIDERS: ATTEND Orthopaedic Surgery | DX: S72.21XD Displaced subtrochanteric fracture of right femur, subsequent encounter for closed fracture with routine healing (principal); X58.XXXD Exposure to other specified factors, subsequent encounter ==

== ENCOUNTER → 2021-09-02 | Outpatient (CLI) | payer OTHER | END | disposition home or self-care (01) | LOC: ORTHO 00:25 | PROVIDERS: ATTEND Orthopaedic Surgery | DX: S72.21XD Displaced subtrochanteric fracture of right femur, subsequent encounter for closed fracture with routine healing (principal); X58.XXXD Exposure to other specified factors, subsequent encounter ==

== ENCOUNTER → 2022-08-17 | Outpatient (CLI) | payer OTHER ==
[2022-08-17 12:29] LABS: BASO % 0.4 % (0.0-1.0); EOS # 0.1 10*3/uL (0.0-0.4); EOS % 0.7 % (1.0-4.0); HEMATOCRIT 44.8 % (42.0-52.0); LYMPH # 2.2 10*3/uL (1.3-4.4); LYMPH % 26.8 % (27.0-41.0); MEAN CELL VOLUME 88.5 fl (80.0-94.0); MEAN CORPUSCULAR HGB 29.2 pg (27.0-31.0); MEAN PLATELET VOLUME 9.4 fl (9.6-12.3); MONO # 0.8 10*3/uL (0.1-1.0); MONO % 10.3 % (3.0-9.0); NEUT % 61.6 % (47.0-73.0); PLATELET COUNT AUTOMATED 288 10*3/uL (130-400); RED BLOOD COUNT 5.06 10*6/uL (4.50-5.90); RED CELL DISTRI WIDTH 12.6 % (0-14.5); WHITE BLOOD COUNT 8.1 10*3/uL (4.8-10.8)
[2022-08-17 12:44] LABS: ALKALINE PHOSPHATASE 75 U/L (46-116); BUN 13 mg/dl (9-23); CHLORIDE 101 mmol/L (98-107); POTASSIUM 3.8 mmol/L (3.4-5.1); SGPT/ALT 32 U/L (10-49); TOTAL PROTEIN 8.2 gm/dL (6.0-8.0)
[2022-08-18 06:07] LABS: HBSAG Negative (Negative); HEP B CORE AB, IGM Negative (Negative)
[2022-08-21 19:06] LABS: HEPATITIS C ANTIBODY >11.0 (0.0-0.9)
== END | disposition home or self-care (01) ==
LOC: LAB 11:50
PROVIDERS: ATTEND Anesthesiology Addiction Medicine
DX: F11.11 Opioid abuse, in remission (principal); F14.11 Cocaine abuse, in remission

== ENCOUNTER → 2022-10-13 | Outpatient (CLI) | payer OTHER | END | disposition home or self-care (01) | LOC: RAD 10-09 10:30 | PROVIDERS: ATTEND Nurse Practitioner Family | DX: M81.0 Age-related osteoporosis without current pathological fracture (principal) ==

== ENCOUNTER 2023-08-06 13:19 | Emergency (ER) | payer OTHER ==
[~2023-08-06] VITALS: Ht 175.2 cm; Wt 54.4 kg
== END 2023-08-06 16:51 | disposition left against medical advice (07) ==
LOC: ED 13:19
DX: M54.2 Cervicalgia (principal); M54.9 Dorsalgia, unspecified; M25.519 Pain in unspecified shoulder; Z88.8 Allergy status to other drugs, medicaments and biological substances; Z53.21 Procedure and treatment not carried out due to patient leaving prior to being seen by health care provider

== ENCOUNTER → 2024-11-06 | Outpatient (CLI) | payer OTHER ==
[2024-11-06 10:55] LABS: BASO % 0.5 % (0.0-1.0); EOS # 0.1 10*3/uL (0.0-0.4); EOS % 1.1 % (1.0-4.0); HEMATOCRIT 38.3 % (42.0-52.0); MEAN CELL VOLUME 86.3 fl (80.0-94.0); MEAN CORPUSCULAR HGB 29.5 pg (27.0-31.0); MEAN CORPUSCULAR HGB CONC 34.2 g/dl (33.0-37.0); MEAN PLATELET VOLUME 9.2 fl (9.6-12.3); MONO # 0.7 10*3/uL (0.1-1.0); MONO % 11.3 % (3.0-9.0); NEUT # 3.2 10*3/uL (2.3-7.9); NEUT % 48.4 % (47.0-73.0); PLATELET COUNT AUTOMATED 270 10*3/uL (130-400); RED BLOOD COUNT 4.44 10*6/uL (4.50-5.90); RED CELL DISTRI WIDTH 12.6 % (0-14.5); WHITE BLOOD COUNT 6.6 10*3/uL (4.8-10.8)
[2024-11-06 11:16] LABS: ALKALINE PHOSPHATASE 73 U/L (46-116); BUN 11 mg/dl (9-23); CHLORIDE 104 mmol/L (98-107); POTASSIUM 3.9 mmol/L (3.4-5.1); SGPT/ALT 12 U/L (5-49); TOTAL PROTEIN 7.3 gm/dL (6.0-8.0)
[2024-11-07 05:06] LABS: HBsAG SCREEN Negative (Negative); HEP B CORE Ab, IgM Negative (Negative)
[2024-11-08 11:07] LABS: TB1 Ag VALUE 0.03 IU/mL (.)
== END | disposition home or self-care (01) ==
LOC: LAB 10:33
PROVIDERS: ATTEND Physician Assistant Medical
DX: F11.20 Opioid dependence, uncomplicated (principal)